=== PATIENT | female | born 1945 | race Caucasian/White ===

== ENCOUNTER → 2022-03-29 | Outpatient (CLI) | payer MEDICARE, SELFPAY ==
[2022-03-29 15:11] LABS: International Normalized Ratio 2.4; Prothrombin Time (Protime)PT. 25.7 SECONDS (11.7-14.9)
== END | disposition home or self-care (01) ==
LOC: LABSPEC 14:42
PROVIDERS: PCP Family Medicine; Referring Provider Physician Assistant; Visit Provider Physician Assistant
DX: I48.91 Unspecified atrial fibrillation (principal)
CPT/HCPCS: 85610

== ENCOUNTER → 2024-09-26 | Outpatient (CLI) | payer MEDICARE, SELFPAY ==
--- NOTE | 2024-09-26 12:58 | MRI_ITS ---
PROCEDURE: BRAIN W/WO CONTRAST 09/26/2024 REASON FOR EXAM: L 6TH NERVE PALSY, DIPLOPLIA TECHNIQUE: Routine brain MRI without and with intravenous contrast. Multiplanar and multisequence images were obtained. CONTRAST: Clariscan VOLUME: 18 mL COMPARISON: None. FINDINGS: There is prominence of the ventricles and sulci indicative of atrophy. No midline shift, mass effect, or extra-axial fluid collections are identified. There are multiple hyperintense T2/FLAIR signal in the periventricular and deep white matter relating to chronic small vessel ischemic changes. There are chronic ischemic changes in the antonette. No diffusion restriction is identified on diffusion-weighted imaging to suggest acute/subacute ischemic changes. No acute intracranial hemorrhage or acute territorial infarction is seen. No abnormal enhancement or enhancing mass is identified. Corpus callosum, optic chiasm, suprasellar cistern, and cerebellar tonsils are within normal range. Major vascular flow voids are present. Bilateral orbits are intact. MRI/Brain W/WO Contrast IMPRESSION: 1. No acute intracranial process or abnormal enhancement. 2. Chronic small vessel ischemic disease. 3. Atrophy. Reading Location: [facility]
== END | disposition home or self-care (01) ==
LOC: OPMRI 12:42
PROVIDERS: PCP Family Medicine; Referring Provider Ophthalmology; Visit Provider Ophthalmology
DX: H49.22 Sixth [abducent] nerve palsy, left eye (principal); H53.2 Diplopia
CPT/HCPCS: 70553; A9575